=== PATIENT | female | born 1955 | race Caucasian/White ===

== ENCOUNTER 2024-01-01 09:07 | Emergency (ER) | payer MEDICARE, SELFPAY ==
[2024-01-01 09:20] VITALS: BP 144/82
--- NOTE | 2024-01-01 12:12 | ED.GENMED ---
History of Present Illness
General
Chief Complaint: Allergic Reaction
Source: patient
Exam Limitations: none
Time Seen by Provider: 01/01/24 10:05
Travel History
Have you had any contact with someone who has COVID-19?: No
Do you have any symptoms of coronavirus? Fever > 100 degrees, chills, cough, shortness of breath, sore throat, loss of taste or smell, muscle aches, or headache?: No
History of Present Illness
History of Present Illness:
68-year-old female presents after developing an itchy rash diffusely over her body after taking any medication today. The tablet of vitamin B3 as well as a tablet and vitamin B6 and 3 minutes afterwards, he developed a red itchy rash diffusely.
Called ambulance. There is no respiratory distress. There is no vomiting. She was given Decadron Benadryl and an EpiPen en route. Upon my exam she states the rash is almost nearly resolved. She denies any chest pain
Phy Exam
Physical Exam
Physical Exam:
General: Well-appearing female no acute respiratory distress
HEENT: Normocephalic atraumatic neck is supple
Heart: Regular rate and rhythm no murmurs
Skin: Warm evidence of a prior rash exist but seems to be fading
Extremities: No cyanosis
Course
Vital Signs
Initial and Last Documented VS:
Initial Vital Signs
Temp Pulse Resp BP Pulse Ox
98.2 F 78 18 144/82 97
01/01/24 09:20 01/01/24 09:20 01/01/24 09:20 01/01/24 09:20 01/01/24 09:20
Last Documented Vital Signs
Temp Pulse Resp BP Pulse Ox
98.2 F 78 18 144/82 97
01/01/24 09:20 01/01/24 09:20 01/01/24 09:20 01/01/24 09:20 01/01/24 09:20
MDM/Problems Addressed
Differential Diagnosis Includes:
Allergic reaction. Patient was given epinephrine. No current rash. Will observe
*Critical Care Note
Total Time (30-74mins, 75-104mins- exclusive of procedures): Not Applicable
Update Note
Update Note:
Patient was observed for period time feeling much better. Will prescribe epinephrine pen for use at home if need be. Recommended follow-up with family doctor
ED Attending Note
-
Portions of this chart may have been created with voice recognition software.� Occasional wrong word or��sound alike� substitutions may have occurred due to the inherent limitations of voice recognition software.
Discharge Plan
Departure
Patient Disposition: Home (Routine Discharge)
Date of Disposition: 01/01/24
Time of Disposition: 12:15
Patient with high blood pressure during this ER visit?: No
Discharge Problem:
Allergic reaction
Instructions: Adverse Drug Reactions, Adult (DC)
Prescriptions:
New
epinephrine [EpiPen] 0.3 mg/0.3 mL auto-injector
0.3 mg IM .STAT PRN (Reason: anaphylaxis) Qty: 1 0RF
Referrals:
Jamaica Batista DO [Family Provider] -
Activity Restrictions/Additional Instructions:
Avoid the pills you reacted to this morning. Follow-up with family doctor. Use EpiPen if needed for severe allergic reaction.
Interventions
Interventions:
ED- Cardiac Assessment Last Done: 01/01/24 11:26
ED- Pulmonary Assessment Last Done: 01/01/24 11:27
== END 2024-01-01 12:50 | disposition home or self-care (01) ==
LOC: EMR 09:07
PROVIDERS: EMERGENCY PHYSICIAN Emergency Medicine; FAMILY PHYSICIAN Family Medicine
DX: T78.40XA Allergy, unspecified, initial encounter (principal); X58.XXXA Exposure to other specified factors, initial encounter
CPT/HCPCS: 99282

== ENCOUNTER 2024-07-07 07:19 | Inpatient (IN) | payer MEDICARE, SELFPAY ==
[2024-07-05 13:21] VITALS: BP 165/110
[2024-07-05 13:42] LABS: % Basophils 0.2 % (0-2); % Eosinophils 0.5 % (0-6); % Immature Granulocytes 0.2 % (0-0.5); % Lymphocytes 36.5 % (20.5-51.1); % Monocytes 7.2 % (1.7-9.3); % Neutrophils 55.4 % (42.2-75.2); Absolute Lymphocytes 1.5 10^3/uL (1.2-3.4); Absolute Monocytes 0.3 10^3/uL (0.1-0.6); Absolute Neutrophils 2.3 10^3/uL (1.4-6.5); Hematocrit 38.1 % (37.0-47.0); Hemoglobin 13.3 g/dL (12.0-16.0); Mean Corp Hgb Conc. 34.9 g/dL (33.0-37.0); Mean Corpuscular Hgb 31.1 pg (27.0-31.0); Mean Corpuscular Volume 89.2 fL (81.0-99.0); Mean Platelet Volume 9.1 fL (7.4-10.4); Nucleated Red Blood Cells % 0 %; Platelet Count 330 10^3/uL (130-400); Red Blood Cell Count 4.27 10^6/uL (4.20-5.40); Red Cell Dist. Width 12.8 % (11.5-14.5); White Blood Cell Count 4.1 10^3/uL (4.8-10.8)
[2024-07-05 13:54] LABS: INR 1.01; PT 13.3 Sec (11.4-14.6)
[2024-07-05 14:03] LABS: ALT (SGPT) < 10 U/L (0-35); AST (SGOT) 24 U/L (14-36); Albumin 4.5 g/dl (3.5-5.0); Alkaline Phosphatase 79 U/L (38-126); Blood Urea Nitrogen 10 mg/dl (7-17); Calcium 10.1 mg/dl (8.4-10.2); Carbon Dioxide 25 mmol/L (22-30); Chloride 102 mmol/L (98-107); Glucose 122 mg/dl (70-99); Potassium 4.1 mmol/L (3.5-5.1); Sodium 134 mmol/L (135-145); Total Bilirubin 0.8 mg/dl (0.2-1.3); eGFR > 60.00
[2024-07-05 14:06] LABS: Troponin I < 0.012 ng/ml
[2024-07-05] MEDS: ULTRAM 50 MG PO ×2 (15:15→20:09)
[2024-07-05 15:45] VITALS: BP 131/84
--- NOTE | 2024-07-05 16:45 | ED.GENMED ---
History of Present Illness
General
Chief Complaint: Weakness
Source: patient and records
Exam Limitations: none
Time Seen by Provider: 07/05/24 14:42
Nursing documentation reviewed up to this point in time: agreed with
History of Present Illness
History of Present Illness:
Patient is a 69-year-old female presents to the emergency department complaining of neck pain. Patient's had surgery x 2. Patient states she twisted her neck neck became stiff. Patient feels swelling in the back of her head. Patient is weakness
in arms and legs with numbness and paresthesias in her upper extremities bilaterally patient has pain radiating from her neck into her upper extremities. Patient particularly has pain in her right collarbone area. Patient also has cracking in her
neck whenever she moves it which is new. Patient had been on tramadol but was switched by her pain doctor to oxycodone. Patient has an appointment for tomorrow with her pain specialist. Patient canceled the appointment. Patient is out of pain
medication. Patient denies fever but admits to chills. Patient denies incontinence. Patient denies any recent injuries or illnesses. Patient denies weight change.
Past History
Past History
ED Past Medical History: HTN and Other (Chronic pain, Parkinson's, Crohn's disease)
Social History
Tobacco: Non-smoker
Review of Systems
Review of Systems
All Other Systems: ROS reviewed and negative except as documented in HPI and ROS
Constitutional: Reports fatigue; Denies fever or chills
EENT: Reports no symptoms
Respiratory: Reports no symptoms
Cardiac: Reports no symptoms
ABD/GI: Reports no symptoms
: Reports no symptoms; Denies incontinence
Musculoskeletal: Reports neck pain
Neurological: Reports weakness and numbness
Hematologic/Lymphatic: Reports no symptoms
Phy Exam
Physical Exam
Physical Exam:
Physical Exam
General: moderate distress, alert and appropriate, well nourished, well hydrated
HENT: Normocephalic and nontender, supple with no lymphadenopathy, no thyromegaly. Decreased range of motion in all planes with diffuse tenderness the posterior neck
Eyes: Clear sclera, conjuctiva without injection
Heart: Regular rhythm and rate. No S3, S4. No murmur. No NVD
Lungs: No respiratory distress, no stridor, lung sounds clear and equal bilaterally
Abdomen: Soft, nontender, BS good
Neuro: Alert and oriented x 3, CN II - XII intact, no motor focality but diffuse weakness, no cerebellar dysfunction
Skin: no rash
Psychiatric: well kept. interactive and cooperative
Extremities: No edema, cyanosis, tenderness, Good and equal peripheral pulses.
Course
Orders/Labs/Results
Orders:
Orders
07/05/24 13:22
EKG [Electrocardiogram (*1)] Urgent
Reason for Study: Fatigue / Weakness
EKG- Treatment ONCE
07/05/24 13:30
Complete Blood Count/With Diff Urgent
Comprehensive Metabolic Panel Urgent
Prothrombin Time Urgent
Troponin I Urgent
07/05/24 15:00
Tramadol HCl [Ultram] 50 mg PO NOW STA
07/05/24 17:35
CT Cervical Spine W/o Iv Contr Urgent
Comment:
Reason For Exam: diffuse pain with tingling in fingers b/l
07/05/24 19:31
Tramadol HCl [Ultram] 50 mg PO NOW STA
07/05/24 19:37
Dexamethasone Sod Phosphate [Decadron] 10 mg IV NOW STA
Abnormal Lab Results
07/05/24
13:30
WBC 4.1 L 10^3/uL
(4.8-10.8)
MCH 31.1 H pg
(27.0-31.0)
Sodium 134 L mmol/L
(135-145)
Creatinine 0.4 L mg/dL
(0.6-1.0)
Glucose 122 H mg/dl
(70-99)
07/05/24 13:30
07/05/24 13:30
Vital Signs
Initial and Last Documented VS:
Initial Vital Signs
Temp Pulse Resp BP Pulse Ox
99.0 F 81 18 165/110 94
07/05/24 13:21 07/05/24 13:21 07/05/24 13:21 07/05/24 13:21 07/05/24 13:21
Last Documented Vital Signs
Temp Pulse Resp BP Pulse Ox
99.0 F 79 16 133/70 98
07/05/24 13:21 07/05/24 19:00 07/05/24 19:00 07/05/24 19:02 07/05/24 19:00
*Radiology
Radiology exam reviewed: radiology read reviewed (Postsurgical changes seen with mild to moderate narrowing of the foramens but nothing acute)
*Pulse Oximetry
Patient hypoxic: no
*EKG
Interpreted by ED Provider?: Yes
EKG Intrepretation Date: 07/05/24
EKG Intrepretation Time: 19:51
Interpretation: normal
Comparison EKG: no comparison EKG present
Heart Rate: 105
Rate: tachycardiac
Rhythm: sinus
[place]: normal axis
Interval: normal interval
QRS Pattern: normal QRS
Ischemia: no ischemia
*Donkey Engine Firer/Fireman Interpretation
Rate: Donkey Engine Firer/Fireman- N/A
*Critical Care Note
Total Time (30-74mins, 75-104mins- exclusive of procedures): Not Applicable
Update Note
Update Note:
Patient states she is too weak generally to walk or ambulate and is in too much pain to be able go home. Patient canceled her appointment with her pain doctor because she was here. I do not see evidence of a cord compression. Patient may have
generalized inflammation. Patient is mildly tachycardic. Given the fact that the patient is essentially nonambulatory will admit the patient.
ED Attending Note
-
Portions of this chart may have been created with voice recognition software.� Occasional wrong word or��sound alike� substitutions may have occurred due to the inherent limitations of voice recognition software.
Discharge Plan
Departure
Patient Disposition: Admit
Date of Disposition: 07/05/24
Time of Disposition: 19:53
Admit to: Med/Surg
Admit to doctor: Hospitalist
Presentation/result/management discussed w/ accepting MD/DO: Hospitalist
Patient with high blood pressure during this ER visit?: Yes
Condition: Fair
Covid-19: Not Applicable
Discharge Problem:
Neck pain, Radiculopathy of cervical region, Ambulatory dysfunction
Prescriptions:
No Action
epinephrine [EpiPen] 0.3 mg/0.3 mL auto-injector
0.3 mg IM .STAT PRN (Reason: anaphylaxis) Qty: 1 0RF
Referrals:
Jamaica Batista DO [Family Provider] -
Interventions
Interventions:
*Risk Screen - Suicide Last Done: 07/05/24 19:00
*General Assessment Last Done: 07/05/24 19:00
*Neglect/Abuse Screening Last Done: 07/05/24 19:00
*ED COVID-19 Vaccine History Last Done: 07/05/24 19:00
ED- Cardiac Assessment Last Done: 07/05/24 19:00
ED- Neurological Assessment Last Done: 07/05/24 19:00
ED- Pulmonary Assessment Last Done: 07/05/24 19:00
Discharge Date and Time
Print Language: ROMANIAN
[2024-07-05 19:02] VITALS: BP 133/70
[2024-07-05] MEDS: DECADRON 10 MG IV (20:09)
--- NOTE | 2024-07-05 20:32 | HPS.HSE ---
Addendum entered and electronically signed by Eric Vega MD 07/05/24 23:45:
Med rec has since been completed. Continue carbidopa-levodopa for Parkinson's disease. Continue lisinopril for hypertension. Continue Lexapro for depression.
Original Note:
Family Physician
-
Family Physician: Jamaica Batista,
Chief Complaint
-
neck pain
History of Present Illness
69-year-old female past medical history of chronic neck pain, cervical disc disease, lumbar spinal stenosis, Parkinson's disease, Crohn's disease status post bowel resection now cured, presenting with neck pain over the past month.
Patient has a history of chronic pain due to cervical disc herniation/stenosis. She underwent several surgeries once in 2020 and 2022 including cervical fusion with screws/intervertebral disc spacer/laminectomy. She normally takes tramadol for
pain and pain is usually well-controlled. He sees pain management. She uses a neck collar while driving. A month ago she was driving and afterwards she tried to take her neck collar off and hurt her neck. This again happened more recently within
the past few weeks. She also ran out of her tramadol.
Over the past week in addition to the severe pain in her neck which radiates to the occipital region of her head, she has also developed pain in her neck that radiates down her arms associate with numbness and tingling and weakness of the upper
extremities. She has also had weakness of the lower extremities and occasional numbness and tingling down the right leg. She is able to walk to the bathroom but feels more weak than usual. She denies any urinary or stool incontinence. She has
occasional chills but denies any fever.
Her last MRI was 1 year ago.
She uses marijuana sometimes. She denies smoking or alcohol use.
Medical History
Past Medical History
Past Medical History: Reports Other (chronic neck pain, cervical disc disease, lumbar spinal stenosis, Parkinson's disease, Crohn's disease status post bowel resection now cured,)
Past Surgical History: Reports Bowel Resection and Gynocological
Social History
Tobacco: Non-smoker
Alcohol: None
Drug: Marijuana
Family History
Family History: Not pertinent
Allergies / Home Medications
Allergies reflects when Allergies were last updated in [facility].
Home Medications with original date entered in [facility]
Allergy/Medication List:
Allergies
Allergy/AdvReac Type Severity Reaction Status Date / Time
gabapentin Allergy Rash Verified 07/05/24 13:20
Penicillins Allergy Unknown Verified 07/05/24 13:20
Home Medications
epinephrine 0.3 mg/0.3 mL injection, auto-injector (EpiPen) 0.3 mg (0.3 mL) IM .STAT PRN anaphylaxis #1 ea 01/01/24
Review of Systems
-
History Source: Patient
A 12 point ROS was completed and negative except as noted: Yes
Constitutional: Reports No Symptoms
EENT: Reports No Symptoms
Respiratory: Reports No Symptoms
Cardiac: Reports No Symptoms
Abdomen/GI: Reports No Symptoms
: Reports No Symptoms
Musculoskeletal: Reports See HPI
Skin: Reports No Symptoms
Neurological: Reports No Symptoms
Endocrine: Reports No Symptoms
Hematologic/Lymphatic: Reports No Symptoms
Psych: Reports No Symptoms
Physical Exam
Vital Signs
Vital Signs
Temp Pulse Resp BP Pulse Ox
99.0 F 79 16 133/70 98
07/05/24 13:21 07/05/24 19:00 07/05/24 19:00 07/05/24 19:02 07/05/24 19:00
Physical Exam
General: Well Developed, Well Nourished and No Apparent Distress
HEENT: NormoCephalic, Moist mucous membranes and Atraumatic
Respiratory: Clear
Cardiac: S1/S2 and Regular Rhythm; No Murmur or Rub
GI: Soft, Non Tender, Non Distended and Normal Bowel Sounds; No Organomegaly
Rectal: Deferred by Provider
Musculoskeletal: No Clubbing, No Cyanosis, No Edema and Other (4/5 upper extremity strength and lower extremity strength )
Skin: No Rash
Neuro: Nonfocal/grossly intact
Laboratory Results
-
07/05/24 13:30
07/05/24 13:30
Laboratory Results
PT 13.3 Sec (11.4-14.6) 07/05/24 13:30
INR 1.01 07/05/24 13:30
Total Bilirubin 0.8 mg/dl (0.2-1.3) 07/05/24 13:30
AST 24 U/L (14-36) 07/05/24 13:30
ALT < 10 U/L (0-35) 07/05/24 13:30
Alkaline Phosphatase 79 U/L (38-126) 07/05/24 13:30
Troponin I < 0.012 ng/ml 07/05/24 13:30
Data Reviewed
-
Lab Data: Labs Reviewed by me
Old Records: Reviewed
Impression/Plan
-
IMPRESSION:
PLAN:
# Bilateral upper extremity radiculopathy secondary to cervical spinal disc disease status post cervical fusion with metal screws/metallic intervertebral disc spacers/laminectomy
# History of lumbar spinal stenosis
# Chronic pain from above
-CT cervical spine shows postsurgical changes after anterior cervical fusion from C4-C7, vertebral screws from C4-C7, metallic intervertebral disc spacers from C4-C7
-Given dexamethasone in ER
-Tylenol, continue tramadol, ibuprofen, baclofen, Dilaudid for severe pain
-Check MRI cervical, thoracic and lumbar spine given mild upper extremity weakness on examination
-PT/OT
Multiple sclerosis
Crohn's disease status post bowel resection and cured
Occasional marijuana use
DNR/DNI
DVT prophylaxis heparin
Regular diet
[2024-07-05 21:05] VITALS: BP 126/81; BMI 24.7
--- NOTE | 2024-07-05 21:34 | PTCARENOTE ---
Patient arrived from the ED via stretcher. Patient ambulated into the room with assistance. Patient AAOx3, VSS. Patient wearing own C-Collar and left ankle brace. RN and staff advised patient to ring call arellano whenever she needs to get up to use the
bathroom, etc. Bedside commode by the bedside. Call arellano is within reach.
[2024-07-05] MEDS: LIORESAL 5 MG PO (22:55)
[2024-07-05 23:25] VITALS: BP 118/77
[2024-07-06] MEDS: DILAUDID 0.5 MG IV (00:59)
[2024-07-06] MEDS: TYLENOL 1000 MG PO ×2 (02:33→10:06)
[2024-07-06 03:03] VITALS: BP 110/71
[2024-07-06] MEDS: ULTRAM 50 MG PO ×3 (06:16→20:45)
[2024-07-06 07:52] VITALS: BP 145/87
[2024-07-06 08:13] LABS: % Immature Granulocytes 0.4 % (0-0.5); % Monocytes 4.3 % (1.7-9.3); % Neutrophils 69.3 % (42.2-75.2); Absolute Lymphocytes 1.3 10^3/uL (1.2-3.4); Absolute Monocytes 0.2 10^3/uL (0.1-0.6); Absolute Neutrophils 3.4 10^3/uL (1.4-6.5); Hematocrit 39.3 % (37.0-47.0); Hemoglobin 13.3 g/dL (12.0-16.0); Mean Corp Hgb Conc. 33.8 g/dL (33.0-37.0); Mean Corpuscular Hgb 31.4 pg (27.0-31.0); Mean Corpuscular Volume 92.7 fL (81.0-99.0); Mean Platelet Volume 10.1 fL (7.4-10.4); Nucleated Red Blood Cells % 0 %; Platelet Count 326 10^3/uL (130-400); Red Blood Cell Count 4.24 10^6/uL (4.20-5.40); Red Cell Dist. Width 12.6 % (11.5-14.5); White Blood Cell Count 4.9 10^3/uL (4.8-10.8)
[2024-07-06] MEDS: HEPARIN 5000 UNITS SC ×2 (08:38→19:24)
[2024-07-06] MEDS: ZESTRIL 20 MG PO (08:39)
[2024-07-06] MEDS: OSCAL CAL 500 500 MG PO (08:39)
[2024-07-06] MEDS: LEXAPRO 10 MG PO (08:39)
[2024-07-06] MEDS: VITAMIN D3 (cholecalciferol) 25 MCG PO (08:40)
[2024-07-06] MEDS: THERAGRAN 1 TABLET PO (08:41)
[2024-07-06 08:42] LABS: ALT (SGPT) < 10 U/L (0-35); AST (SGOT) 23 U/L (14-36); Albumin 4.5 g/dl (3.5-5.0); Alkaline Phosphatase 91 U/L (38-126); Blood Urea Nitrogen 13 mg/dl (7-17); Calcium 9.8 mg/dl (8.4-10.2); Carbon Dioxide 24 mmol/L (22-30); Chloride 102 mmol/L (98-107); Estimated Creatinine Clearance 72 ml/min; Glucose 104 mg/dl (70-99); Potassium 4.3 mmol/L (3.5-5.1); Sodium 135 mmol/L (135-145); Total Bilirubin 0.8 mg/dl (0.2-1.3); Total Protein 7.1 g/dl (6.3-8.2); eGFR > 60.00
[2024-07-06] MEDS: LIORESAL 5 MG PO ×2 (08:49→21:47)
[2024-07-06] MEDS: SINEMET 25-250 1 TABLET PO ×3 (10:06→16:29)
[2024-07-06] MEDS: ROXICODONE 5 MG PO (10:44)
--- NOTE | 2024-07-06 11:48 | W.PN.HOSP.TC ---
Today's Communication/Plan
-
Check MRI of the C-spine
Physical and Occupational Therapy
Pain control
Assessment / Plan
Assessment / Plan
General: Well Developed, Well Nourished and No Apparent Distress
HEENT: NormoCephalic, Moist mucous membranes and Atraumatic
Respiratory: Clear
Cardiac: S1/S2 and Regular Rhythm; No Murmur or Rub
GI: Soft, Non Tender, Non Distended and Normal Bowel Sounds; No Organomegaly
Rectal: Deferred by Provider
Musculoskeletal: No Clubbing, No Cyanosis, No Edema and Other (4/5 upper extremity strength and lower extremity strength )
Skin: No Rash
Neuro: Nonfocal/grossly intact
# Bilateral upper extremity radiculopathy secondary to cervical spinal disc disease status post cervical fusion with metal screws/metallic intervertebral disc spacers/laminectomy
# History of lumbar spinal stenosis
# Chronic pain from above
# Chronic opiate dependent on daily basis
-CT cervical spine shows postsurgical changes after anterior cervical fusion from C4-C7, vertebral screws from C4-C7, metallic intervertebral disc spacers from C4-C7
-Given dexamethasone in ER
-Tylenol, continue tramadol, ibuprofen, baclofen, Dilaudid for severe pain
-Check MRI cervical spine for now.
-PT/OT
-States pain is well-controlled with tramadol and follows up with pain management doctor. Recently tramadol was switched to Percocet. Per patient tramadol high dose seems to be helping more with pain compared to Percocet.
# Parkinson disease
Continue home regimen of carbidopa levodopa
#Generalized weakness likely multifactorial due to chronic pain on opioids, Parkinson disease
-Check Vit D, B12, Folate and TSH level
# Primary hypertension
Continue lisinopril
Mood disorder
Continue SSRI
R shoulder pain
Xray-Osteoarthritis involving the glenohumeral and acromioclavicular joints with associated joint space narrowing
Ice pack
pain control
Crohn's disease status post bowel resection and cured
Occasional marijuana use
DNR/DNI
DVT prophylaxis heparin
Regular diet
Anticipated Discharge: Within 24 hours
Subjective/Interval History
-
Date of Service: July 06, 2024
states of neck pain radiating to shoulder
states of R shoulder pain
hx of cervical spinal surgery
sees op pain managmenet
Objective Data
-
Labs:
Laboratory Results
07/06/24
06:17
WBC 4.9
Hgb 13.3
Hct 39.3
Plt Count 326
Sodium 135
Potassium 4.3
Chloride 102
Carbon Dioxide 24
BUN 13
Creatinine 0.4 L
Glucose 104 H
Calcium 9.8
Total Bilirubin 0.8
AST 23
ALT < 10
Alkaline Phosphatase 91
Vital Signs:
Vital Signs
Temp Pulse Resp BP Pulse Ox
98.2 F 114 22 145/87 97
07/06/24 07:52 07/06/24 07:52 07/06/24 07:52 07/06/24 08:39 07/06/24 11:01
I&O
07/05/24 07/06/24 07/07/24
06:59 06:59 06:59
Intake Total 480 / 480
Balance 480 / 480
[2024-07-06 14:16] LABS: Vitamin D, 25-OH*** 38.2 ng/mL (30-80)
[2024-07-06] MEDS: ATIVAN 1 MG PO (14:21)
[2024-07-06 14:27] LABS: TSH Reflex To Free T4 0.49 uIU/ml (0.47-4.68)
[2024-07-06 14:56] VITALS: BMI 24.7
[2024-07-06 15:03] LABS: Folate > 20.0 ng/ml (2.76-20); Vitamin B12 846 pg/ml (239-931)
[2024-07-06 15:52] VITALS: BP 145/87
[2024-07-06] MEDS: SINEMET 25-250 PO (19:23)
[2024-07-06] MEDS: SINEMET CR 50/200 (EXTENDED RELEASE) 1 TABLET PO (21:41)
[2024-07-06] MEDS: MELATONIN 10 MG PO (21:41)
[2024-07-06 23:00] VITALS: BP 114/67
[2024-07-07] MEDS: TYLENOL 650 MG PO (03:49)
[2024-07-07] MEDS: SINEMET 10-100 3 TABLET PO (03:50)
[2024-07-07 05:45] VITALS: BMI 25.2
[2024-07-07] MEDS: ULTRAM 50 MG PO (06:33)
[2024-07-07 07:10] VITALS: BP 114/74
--- NOTE | 2024-07-07 09:41 | CM ---
CM met with Nicole at bedside yesterday to complete IA. Nicole lives alone in a duplex, the second floor with 12 entry steps with bilateral railings. She has a RW, cane and tub seat as well as grab bars in the tub. The family downstairs are
supportive.
Therapy was on hold yesterday pending results of MRI.
Nicole would like to return home at discharge if able and would consider VN if recommended.
CM will continue to follow to coordinate discharge plans based on pt's needs.
[2024-07-07] MEDS: VITAMIN D3 (cholecalciferol) 125 MCG PO (09:56)
[2024-07-07] MEDS: TYLENOL 1000 MG PO (09:57)
[2024-07-07] MEDS: OSCAL CAL 500 500 MG PO (09:58)
[2024-07-07] MEDS: THERAGRAN 1 TABLET PO (09:58)
[2024-07-07] MEDS: ZESTRIL 20 MG PO (09:58)
[2024-07-07] MEDS: LEXAPRO 10 MG PO (09:59)
[2024-07-07] MEDS: HEPARIN 5000 UNITS SC (09:59)
[2024-07-07] MEDS: LIORESAL 5 MG PO (10:01)
[2024-07-07] MEDS: SINEMET 25-250 1 TABLET PO ×2 (10:01→13:10)
--- NOTE | 2024-07-07 11:27 | W.PN.HOSP.TC ---
Today's Communication/Plan
-
Await rehab eval
Pain controlled
Assessment / Plan
Assessment / Plan
General: Well Developed, Well Nourished and No Apparent Distress
HEENT: NormoCephalic, Moist mucous membranes and Atraumatic
Respiratory: Clear
Cardiac: S1/S2 and Regular Rhythm; No Murmur or Rub
GI: Soft, Non Tender, Non Distended and Normal Bowel Sounds; No Organomegaly
Rectal: Deferred by Provider
Musculoskeletal: No Clubbing, No Cyanosis, No Edema and Other (4/5 upper extremity strength and lower extremity strength )
Skin: No Rash
Neuro: Nonfocal/grossly intact
# Bilateral upper extremity radiculopathy secondary to cervical spinal disc disease status post cervical fusion with metal screws/metallic intervertebral disc spacers/laminectomy
# History of lumbar spinal stenosis
# Chronic pain from above
# Chronic opiate dependent on daily basis
-CT cervical spine shows postsurgical changes after anterior cervical fusion from C4-C7, vertebral screws from C4-C7, metallic intervertebral disc spacers from C4-C7
-Given dexamethasone in ER
-Tylenol, continue tramadol, ibuprofen, baclofen, Dilaudid for severe pain
-MR cervical spine noted and report given to patient with extensive radiculopathy and changes associated from prior surgeries.
-PT/OT
-States pain is well-controlled with tramadol and follows up with pain management doctor. Recently tramadol was switched to Percocet. Per patient tramadol high dose seems to be helping more with pain compared to Percocet.
-States baclofen also helping with muscle spasms
# Parkinson disease
Continue home regimen of carbidopa levodopa
#Generalized weakness likely multifactorial due to chronic pain on opioids, Parkinson disease
-Vitamin D level low and dose increased.
# Primary hypertension
Continue lisinopril
Mood disorder
Continue SSRI
R shoulder pain
Xray-Osteoarthritis involving the glenohumeral and acromioclavicular joints with associated joint space narrowing
Ice pack
pain control
Crohn's disease status post bowel resection and cured
Occasional marijuana use
DNR/DNI
DVT prophylaxis heparin
Regular diet
PT/OT.
Anticipated Discharge: Today
Subjective/Interval History
-
Date of Service: July 07, 2024
intermittent pain but controlled with opiates
Objective Data
-
Vital Signs:
Vital Signs
Temp Pulse Resp BP Pulse Ox
98.3 F 87 22 114/74 98
07/07/24 07:10 07/07/24 07:10 07/07/24 07:10 07/07/24 07:10 07/07/24 07:10
I&O
07/06/24 07/07/24 07/08/24
06:59 06:59 06:59
Intake Total 480 / 480 480 / 480
Balance 480 / 480 480 / 480
Data Reviewed
-
MRI: Discussed with Patient (No intrinsic cervical cord signal alteration. Post surgical changes, as described. Slightly accentuated subtle kyphosis at C3-4 combines with moderate generalized annular bulge, resulting in effacement of the anterior
subarachnoid space and mild cord compression. There is also C3-4 mild to moderat)
--- NOTE | 2024-07-07 12:18 | CM ---
Addendum entered by Bibi Granados 07/07/24 16:59:
CM returned to visit Nicole since she was trying to stay longer in the hospital. I advised her that if she did not want to leave, she would have to call Medicare; copy of the IMM provided and explained.
Nicole did not wish to appeal discharge, and stated she would probably be fine to go home after she eats dinner.
RN and MD notified of same.
Plan: Discharge to home with no identified needs. Pt will arrange a LYFT.
Addendum entered by Bibi Granados 07/07/24 14:26:
Nicole is cleared for discharge to home. She was seen this afternoon by PT and was ambulating without any assistance. Now she is stating she feels dizzy and has nothing in her stomach. Discussed with RN and gave Nicolese beatty sal.
We talked about home care services which she had previously been agreeable to, if needed, however now she says she had therapists come to her home and knows the exercises that she should do.
Plan: Nicole to be discharged to home. She will take a Lyft home; she states her neighbors are now going on vacation.
Original Note:
AIMEE continues to follow for discharge planning. Nicole has not had much sleep, so she refused to participate in PT today; She did work with OT and was able to do so independently today.
Plan: Discharge to home with no needs vs. home care services pending PT participation
Neighbors will provide transportation at discharge.
PCP: Nory Batista
Pharmacy: [facility] on [facility] in [place]
[2024-07-07] MEDS: PINK BISMUTH 525 MG PO (13:07)
[2024-07-07] MEDS: ULTRAM 100 MG PO (13:10)
[2024-07-07 13:42] VITALS: BP 97/62; PULSE 81; O2SAT 95
--- NOTE | 2024-07-07 15:36 | W.DCSUMMARY ---
Discharge Summary
Discharge Data
Date of Admission: 07/07/24
Date of Discharge: 07/07/24
-
Pending Results: No
Hospital Course
69-year-old female past medical history of Parkinson disease, hypertension, mood disorder, chronic osteoarthritis, status post resection, occasional male usage, cervical osteoarthritis status post laminectomy extensive surgery who is presenting with
cervical pain and right shoulder pain. Patient underwent CT of the cervical spine CT cervical spine shows postsurgical changes after anterior cervical fusion from C4-C7, vertebral screws from C4-C7, metallic intervertebral disc spacers from C4-C7.
MR cervical spine No intrinsic cervical cord signal alteration. Slightly accentuated subtle kyphosis at C3-4 combines with moderate generalized annular bulge, resulting in effacement of the anterior subarachnoid space and mild cord compression.
There is also C3-4 mild to moderate right foraminal stenosis. Otherwise, no focal protrusion or central canal stenosis at C2-3, C4-5, C5-6, C6-7, C7-T1. There is multilevel moderate osseous neural foraminal encroachment bilaterally extending from
C4-5-6 7. Patient was eval by physical and Occupational Therapy. Patient refused outpatient therapy. Received IV steroids without much improvement and status prednisone in the past did not help. Also was complaining of lower extremity muscle
spasms and stated baclofen seem to help. Patient stated of pain alleviation with increased dose of tramadol and did not want Percocet/oxycodone. Tramadol increased dose was prescribed to the patient and was recommended to follow-up with her
primary pain management doctor next week. Also spine orthopedic evaluation was recommended.
Discharge Plan
-
Patient Disposition: Home with Home Care
Discharge Diagnosis/Procedures: Cervical radiculopathy
Condition: Fair
Diet: As tolerated
Activity: With assistance and As tolerated
Driving Restrictions: Avoid driving while taking narcotics.
Other Services: VN, PT and OT
Activity Restrictions/Additional Instructions:
Follow-up with your pain management doctor as soon as possible.
Referrals:
Michael Donaldson, DO [Active] - in one to two weeks
Jamaica Batista, DO [Family Provider] - in less than 1 week
Additional Discharge Medication Instructions: Percocet has been discontinued till seen by your pain management.
Prescriptions:
New
baclofen 5 mg Tablet
5 mg PO BID PRN (Reason: muscle spasm) 14 Days Qty: 28 0RF
tramadol 100 mg tablet
100 mg PO BID PRN (Reason: severe pain) Qty: 14 0RF
Continued
carbidopa-levodopa 25-250 mg Tablet
1 tab PO Q3H
Patient Comments:
07/05/24: Doses start taken 3 hours after the morning dose of 10-100 strength, and end 3 hours before bedtime dosages.
carbidopa-levodopa 50-200 mg Tablet Extended Release
1 tab PO HS
Patient Comments:
07/05/24: take with 2 10-100 tablets.
therapeutic multivitamin Tablet
1 tab PO DAILY
acetaminophen [Tylenol Extra Strength] 500 mg Tablet
1,000 mg PO Q6HPRN PRN (Reason: mild pain)
calcium carbonate 500 mg calcium (1,250 mg) Tablet
500 mg PO DAILY
carbidopa-levodopa 10-100 mg Tablet
3 tab PO DAILY
carbidopa-levodopa 10-100 mg Tablet
2 tab PO HS
Patient Comments:
07/05/24: taken with ER 50-200 tablet
carboxymethylcellulose sodium 1 % Drops, Liquid Gel
2 drp BOTH EYES BIDPRN PRN (Reason: dry eyes)
escitalopram oxalate 10 mg Tablet
10 mg PO DAILY
Saline Mist 0.65 % Aerosol,[place]
2 spray INTRANASAL QIDPRN PRN (Reason: conjestion)
melatonin 10 mg Tablet
10 mg PO HS
[place] Xl capsule
2 cap PO BID
lisinopril 20 mg Tablet
20 mg PO DAILY
Changed
cholecalciferol (vitamin D3) [Vitamin D3] 25 mcg (1,000 unit) Tablet
50 mcg PO DAILY Qty: 0 0RF
Discontinued
tramadol 50 mg Tablet
50 mg PO BIDPRN PRN (Reason: moderate pain)
Discharge Orders:
Discharge Patient (As Directed); Ordered 07/07/24
Ordered By: Mauricio Busch
Discharge Date and Time
Discharge Date/Time: 07/07/24 17:59
Print Language: TANZANIAN
[2024-07-07 15:49] VITALS: BP 110/63
== END 2024-07-07 17:59 | disposition home health service (06) | DRG 552 ==
LOC: 4 EAST ACU 07:19
PROVIDERS: ADMITTING PHYSICIAN Hospitalist; ATTENDING PHYSICIAN Hospitalist; EMERGENCY PHYSICIAN Emergency Medicine; FAMILY PHYSICIAN Family Medicine
DX: M50.11 Cervical disc disorder with radiculopathy, high cervical region (principal); F11.20 Opioid dependence, uncomplicated; M48.02 Spinal stenosis, cervical region; I10 Essential (primary) hypertension; Z66 Do not resuscitate; F39 Unspecified mood [affective] disorder; G89.29 Other chronic pain; G35 Multiple sclerosis; G20.A1 Parkinson's disease without dyskinesia, without mention of fluctuations; R53.1 Weakness; Z98.1 Arthrodesis status
CPT/HCPCS: 72125; 72141; 73030; 80053; 82306; 82607; 82746; 84443; 84484; 85025; 85610; 93005; 96374; 97162; 97166; 99285

== ENCOUNTER 2025-01-08 13:11 | Inpatient (IN) | payer MEDICARE, SELFPAY ==
[2025-01-04] VITALS (7 sets, daily range): BP systolic 119–146; BP diastolic 68–106
[2025-01-04 17:34] LABS: ALT (SGPT) < 10 U/L (0-35); AST (SGOT) 25 U/L (14-36); Alkaline Phosphatase 104 U/L (38-126); Blood Urea Nitrogen 15 mg/dl (7-17); Calcium 9.7 mg/dl (8.4-10.2); Carbon Dioxide 21 mmol/L (22-30); Chloride 99 mmol/L (98-107); Glucose 109 mg/dl (70-99); Sodium 131 mmol/L (135-145); Total Bilirubin 0.8 mg/dl (0.2-1.3); Total Protein 7.1 g/dl (6.3-8.2); eGFR > 60.00
[2025-01-04 17:47] LABS: % Basophils 0.5 % (0-2); % Eosinophils 0.3 % (0-6); % Immature Granulocytes 0.5 % (0-0.5); % Monocytes 8.4 % (1.7-9.3); % Neutrophils 45.3 % (42.2-75.2); Absolute Lymphocytes 2.9 10^3/uL (1.2-3.4); Absolute Monocytes 0.5 10^3/uL (0.1-0.6); Absolute Neutrophils 2.9 10^3/uL (1.4-6.5); Hematocrit 36.4 % (37.0-47.0); Hemoglobin 12.2 g/dL (12.0-16.0); Mean Corp Hgb Conc. 33.5 g/dL (33.0-37.0); Mean Corpuscular Hgb 30.7 pg (27.0-31.0); Mean Corpuscular Volume 91.7 fL (81.0-99.0); Mean Platelet Volume 8.6 fL (7.4-10.4); Nucleated Red Blood Cells % 0 %; Platelet Count 630 10^3/uL (130-400); Red Blood Cell Count 3.97 10^6/uL (4.20-5.40); Red Cell Dist. Width 13.1 % (11.5-14.5); White Blood Cell Count 6.5 10^3/uL (4.8-10.8)
[2025-01-04 17:52] LABS: Troponin I < 0.012 ng/ml
--- NOTE | 2025-01-04 18:29 | ED.GENMED ---
History of Present Illness
General
Chief Complaint: Headache
Source: patient
Exam Limitations: none
Time Seen by Provider: 01/04/25 18:19
Nursing documentation reviewed up to this point in time: agreed with
History of Present Illness
History of Present Illness:
69-year-old female Parkinson's chronic pain syndrome herniated disc status post pain management procedure recently tells me it wore off about 2 days ago, completed by Dr. Purcell in [address] [place] [address], she has had pain in her neck and her shoulders, some
headaches, tells me she has not run out of her pain meds though PDMP shows that it was last filled 28 days ago
She tells me the tramadol does not work very well anymore
Past History
Past History
ED Past Medical History: HTN and Other (Chronic pain, Parkinson's, Crohn's disease)
Social History
Tobacco: Non-smoker
Alcohol: None
Drug: None
Living: with family
Employment: Retired
Review of Systems
Review of Systems
All Other Systems: Not applicable
Constitutional: Denies fever
EENT: Reports no symptoms
Respiratory: Reports no symptoms
Cardiac: Reports no symptoms
ABD/GI: Reports nausea
: Reports no symptoms
Musculoskeletal: Reports joint pain, joint swelling and muscle stiffness
Neurological: Reports dizzy, headache and weakness
Endocrine: Reports no symptoms
Hematologic/Lymphatic: Reports no symptoms
Psychiatric: Reports anxiety
Phy Exam
Physical Exam
Physical Exam:
Physical Exam
General: Anxious 69-year-old
Neck: No jaundice
Heart: Tachycardic
Lungs: no acute respiratory distress. clear bilaterally
Abdomen: Nontender
Neuro: alert and oriented. no focal neurological deficits
Skin: no rash
Psychiatric: well kept. interactive and cooperative
Extremities: Full range of motion of her shoulders bilaterally without any pain or crepitance
Course
Orders/Labs/Results
Orders:
Orders
01/04/25 16:51
ECG [Electrocardiogram (*1)] Urgent
Reason for Study: Vertigo / Dizzy
EKG- Treatment ONCE
01/04/25 16:57
Complete Blood Count/With Diff Urgent
Comprehensive Metabolic Panel Urgent
Troponin I Urgent
01/04/25 18:41
Oxycodone/Acetaminophen [Percocet 5/325] 1 tablet PO NOW STA
Abnormal Lab Results
01/04/25
16:57
RBC 3.97 L 10^6/uL
(4.20-5.40)
Hct 36.4 L %
(37.0-47.0)
Plt Count 630 H 10^3/uL
(130-400)
Sodium 131 L mmol/L
(135-145)
Carbon Dioxide 21 L mmol/L
(22-30)
Creatinine 0.5 L mg/dL
(0.6-1.0)
Glucose 109 H mg/dl
(70-99)
01/04/25 16:57
01/04/25 16:57
Vital Signs
Initial and Last Documented VS:
Initial Vital Signs
Temp Pulse Resp BP Pulse Ox
97.4 F 133 20 141/88 98
01/04/25 16:47 01/04/25 16:47 01/04/25 16:47 01/04/25 16:47 01/04/25 16:47
Last Documented Vital Signs
Temp Pulse Resp BP Pulse Ox
97.4 F 113 16 138/97 97
01/04/25 16:47 01/04/25 18:45 01/04/25 18:45 01/04/25 18:10 01/04/25 18:45
MDM/Problems Addressed
Differential Diagnosis Includes:
Narcotic withdrawal chronic pain syndrome, no signs of discitis or epidural abscess
MDM/Problems Addressed:
Neck back shoulder pain
Chronic conditions affecting care:
Chronic pain, Parkinson's
Acute Exacerbation and/or Progression of Chronic Illness: Neurological disorder
*Pulse Oximetry
Patient hypoxic: no
*Airways Operations Specialist Interpretation
Rate: tachycardiac
Interpretation: abnormal
Heart Rate: 118
Rhythm: sinus
*Critical Care Note
Total Time (30-74mins, 75-104mins- exclusive of procedures): Not Applicable
Data Reviewed
Review of Other/Old Records Reveals: Other (pdmp)
Prescriptions/Medications Considered But Not Given:
Narcotics
Update Note
Update Note:
Update patient with multiple vague complaints, do not believe this is intracerebral hemorrhage or epidural abscess, she has a chronic pain syndrome, suspect she has run out of her pain meds, will provide supportive care, 1 dose Percocet, I have
encouraged her to call her pain management and primary care doctor tomorrow
Patient ambulated in the ER without difficulty, she has full range of motion of her shoulders without painNo fever no leukocytosis
ED Attending Note
-
Portions of this chart may have been created with voice recognition software.� Occasional wrong word or��sound alike� substitutions may have occurred due to the inherent limitations of voice recognition software.
Discharge Plan
Departure
Patient Disposition: Home (Routine Discharge)
Date of Disposition: 01/04/25
Time of Disposition: 18:50
Patient with high blood pressure during this ER visit?: No
Discharge Problem:
Neck pain, Radiculopathy of cervical region
Prescriptions:
No Action
carbidopa-levodopa 25-250 mg Tablet
1 tab PO Q3H
Patient Comments:
07/05/24: Doses start taken 3 hours after the morning dose of 10-100 strength, and end 3 hours before bedtime dosages.
carbidopa-levodopa 50-200 mg Tablet Extended Release
1 tab PO HS
Patient Comments:
07/05/24: take with 2 10-100 tablets.
therapeutic multivitamin Tablet
1 tab PO DAILY
acetaminophen [Tylenol Extra Strength] 500 mg Tablet
1,000 mg PO Q6HPRN PRN (Reason: mild pain)
calcium carbonate 500 mg calcium (1,250 mg) Tablet
500 mg PO DAILY
carbidopa-levodopa 10-100 mg Tablet
3 tab PO DAILY
carbidopa-levodopa 10-100 mg Tablet
2 tab PO HS
Patient Comments:
07/05/24: taken with ER 50-200 tablet
carboxymethylcellulose sodium 1 % Drops, Liquid Gel
2 drp BOTH EYES BIDPRN PRN (Reason: dry eyes)
escitalopram oxalate 10 mg Tablet
10 mg PO DAILY
Saline Mist 0.65 % Aerosol,[place]
2 spray INTRANASAL QIDPRN PRN (Reason: conjestion)
melatonin 10 mg Tablet
10 mg PO HS
[place] Xl capsule
2 cap PO BID
lisinopril 20 mg Tablet
20 mg PO DAILY
baclofen 5 mg Tablet
5 mg PO BID PRN (Reason: muscle spasm) 14 Days Qty: 28 0RF
cholecalciferol (vitamin D3) [Vitamin D3] 25 mcg (1,000 unit) Tablet
50 mcg PO DAILY Qty: 0 0RF
tramadol 100 mg tablet
100 mg PO BID PRN (Reason: severe pain) Qty: 14 0RF
Referrals:
Silvio Antony MD [Family Provider] - Next open appointment
Activity Restrictions/Additional Instructions:
Call your pain management doctor tomorrow to discuss your symptoms
Interventions
Interventions:
*Risk Screen - Suicide Last Done: 01/04/25 16:51
*General Assessment Last Done: 01/04/25 18:12
*Neglect/Abuse Screening Last Done: 01/04/25 18:12
*ED COVID-19 Vaccine History Last Done: 01/04/25 18:12
ED- Neurological Assessment Last Done: 01/04/25 18:12
Discharge Date and Time
Print Language: JORDANIAN
[2025-01-04] MEDS: PERCOCET 5/325 1 TABLET PO (18:45)
[2025-01-04] MEDS: NSS 1000 IV (19:51)
[2025-01-04] MEDS: ZOFRAN 4 MG IV (19:51)
--- NOTE | 2025-01-04 21:30 | HPS.HSE ---
Family Physician
-
Family Physician: Silvio Antony
Chief Complaint
-
headache
History of Present Illness
Patient is a 6-year-old female with past medical history significant for hypertension, Parkinson's Disease, and depression who presented to [facility] ED for evaluation of headache. Patient reports pain from bulging disc in neck that is in
bilateral shoulders, neck and causing headache. She states the discomfort started yesterday and she used prescribed tramadol and states it was ineffective. She claims that pain was worse this morning than yesterday. Patient denies any fever, chills,
cough, chest pain, palpitations, nausea, vomiting, constipation, diarrhea or urinary symptoms.
Medical History
Past Medical History
Past Medical History: Reports Other
Additional Past Medical History:
hypertension
Parkinson's Disease
Crohn's Disease
depression
Past Surgical History: Reports Other
Additional Past Surgical History:
cervical fusion/laminectomy
small bowel resection for
lumpectomy
Social History
Tobacco: Non-smoker
Alcohol: None
Drug: None
Living: Alone
Employment: Retired
Family History
Family History: Not pertinent
Allergies / Home Medications
Allergies reflects when Allergies were last updated in [facility].
Home Medications with original date entered in [facility]
Allergy/Medication List:
Allergies
Allergy/AdvReac Type Severity Reaction Status Date / Time
gabapentin Allergy Rash Verified 07/05/24 13:20
Penicillins Allergy Unknown Verified 07/05/24 13:20
Home Medications
acetaminophen 500 mg tablet (Tylenol Extra Strength) 1,000 mg PO Q6HPRN PRN mild pain 07/05/24
carbidopa 10 mg-levodopa 100 mg tablet 2 tab PO HS 07/05/24
carbidopa 10 mg-levodopa 100 mg tablet 3 tab PO DAILY 07/05/24
carbidopa 25 mg-levodopa 250 mg tablet 1 tab PO Q3H 07/05/24
carbidopa ER 50 mg-levodopa 200 mg tablet,extended release 1 tab PO HS 07/05/24
carboxymethylcellulose sodium 1 % eye liquid gel drops 2 drp BOTH EYES BIDPRN PRN dry eyes 07/05/24
escitalopram oxalate 10 mg tablet 10 mg PO DAILY 07/05/24
lisinopril 20 mg tablet 20 mg PO DAILY 07/05/24
melatonin 10 mg tablet 10 mg PO HS 07/05/24
therapeutic multivitamin 1 tab PO DAILY 07/05/24
cholecalciferol (vitamin D3) 25 mcg (1,000 unit) tablet (Vitamin D3) 50 mcg (2 x 25 mcg (1,000 unit)) PO DAILY #0 tabs 07/07/24
baclofen 5 mg tablet 5 mg PO BIDPRN PRN muscle spasm 01/04/25
diphenhydramine HCl 50 mg capsule 50 mg PO HSPRN PRN sleep 01/04/25
entacapone 200 mg tablet 200 mg PO TIDPRN PRN if sinemet alone is ineffective 01/04/25
fluticasone propionate 50 mcg/actuation nasal spray,suspension 2 spray intranasal DAILYPRN PRN congestion 01/04/25
omega-3 fatty acids 500 mg capsule 1,500 mg PO DAILY 01/04/25
tramadol 50 mg tablet 50 mg PO Q4H 01/04/25
Review of Systems
-
History Source: Patient
Constitutional: Reports No Symptoms
EENT: Reports No Symptoms
Respiratory: Reports No Symptoms
Cardiac: Reports No Symptoms
Abdomen/GI: Reports No Symptoms
: Reports No Symptoms
Musculoskeletal: Reports Other (bilateral shoulder pain, neck pain and headache)
Skin: Reports No Symptoms
Neurological: Reports No Symptoms
Endocrine: Reports No Symptoms
Hematologic/Lymphatic: Reports No Symptoms
Psych: Reports No Symptoms
Physical Exam
Vital Signs
Vital Signs
Temp Pulse Resp BP Pulse Ox
97.4 F 118 20 140/73 97
01/04/25 16:47 01/04/25 19:30 01/04/25 19:30 01/04/25 19:00 01/04/25 19:30
Physical Exam
General: Well Developed, Well Nourished, Conversant and Pain
HEENT: NormoCephalic, Moist mucous membranes, Atraumatic, [place] Conjunctivae and Nose Appears Normal
Respiratory: Clear and Non Labored Respirations
Cardiac: S1/S2 and Regular Rhythm; No Murmur, Rub or Gallop
Breast: Deferred by me
GI: Soft, Non Tender, Non Distended and Normal Bowel Sounds; No Organomegaly
Rectal: Deferred by Provider
Genito-urinary: Deferred by me
Musculoskeletal: No Clubbing, No Cyanosis and No Edema
Skin: Warm and IV/Catheter Site; No Rash
Neuro: Awake, Alert, AO x 3 and Nonfocal/grossly intact
Psych: Calm and Intact Judgment/Insight
Laboratory Results
-
01/04/25 16:57
01/04/25 16:57
Laboratory Results
Total Bilirubin 0.8 mg/dl (0.2-1.3) 01/04/25 16:57
AST 25 U/L (14-36) 01/04/25 16:57
ALT < 10 U/L (0-35) 01/04/25 16:57
Alkaline Phosphatase 104 U/L (38-126) 01/04/25 16:57
Troponin I < 0.012 ng/ml 01/04/25 16:57
Data Reviewed
-
CT Scan: Report Reviewed by me (Head: No acute intracranial abnormality noted. Possible nasal polyps.; C-spine: Postsurgical changes. There is advanced, progressive degenerative narrowing, sclerosis, and subchondral cystic changes between the
lateral mass of C1 and C2. Otherwise, overall relatively stable.)
Medical Tests (Nuc Med, Echo, EKG etc): Image Personally Visualized and interpreted (EKG: SINUS TACHYCARDIA CANNOT RULE OUT ANTERIOR INFARCT , AGE UNDETERMINED)
Lab Data: Labs Reviewed by me
Impression/Plan
-
IMPRESSION/PLAN:
#headache/dizziness
Head CT: No acute intracranial abnormality noted.
Possible nasal polyps.
C-Spine CT: Postsurgical changes.
There is advanced, progressive degenerative narrowing, sclerosis, and subchondral cystic changes between the lateral mass of C1 and C2.
Otherwise, overall relatively stable.
- Admit to med/surg
- Medrol dose pack
- Tylenol ATC
- start Lyrica
- NSAIDS PRN
- consult PT/OT
- consult case management
#hypertension
- continue lisinopril
#Parkinson's Disease
- continue carbidopa-levodopa
#depression
- continue escitalopram
#Crohn's Disease
s/p bowel resection
Code status: DNR
DVT prophylaxis: loveonox sq
--- NOTE | 2025-01-04 22:09 | W.PN.UPDATE ---
Update Note
Progress Note Update
Patient seen in conjunction with BELLA. I agree with her findings on history and physical. I concur with the assessment and plan.
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
the emergency department with acute episode of shoulder and neck pain. Patient reports waking up with sudden onset of this pain and then a fall. She reports that she likely exacerbated a chronic neck and shoulder pain. She reports the pain is
radiating to left shoulder as well as to her occipital area, preauricular and frontal parts of her head. Pain exacerbated with any movement. Denies any incontinence of the bladder or bowel. Denies any fevers or chills. Denies any upper
respiratory symptoms. Denies any sore throat.
In the emergency department she was afebrile, hemodynamically stable to blood pressure 140/70 pulse of 1 10-1 20, satting 97% on room air. CBC was unremarkable. Electrolytes notable for a sodium of 131 but otherwise BUN/creatinine were
unremarkable. CT of the head shows no acute intracranial process. CT of the cervical spine shows progressive degenerative narrowing, sclerosis, and subchondral cystic changes between the lateral mass of C1 and C2. Otherwise, overall relatively
stable.
Assessment and plan
Suspect exacerbation of chronic spondyloarthropathy of the cervical spine without any focal weakness, numbness and no alarm sign. Pain with occipital component and cephalgia as well. Labs and imaging unremarkable.
- admit to med/surg observation
- medrol dose edgar
- IV toradol now and nsaid prn
- acetaminophen RTC
- dilaudid for severe pain
- lyrica
- PT evaluation, follow up with pain medicine on discharge
- rubens continue her usual home medications
DVT PPX - lovenox sq
Code status - DNR
[2025-01-04] MEDS: TORADOL 15 MG IV (22:16)
[2025-01-04] MEDS: MELATONIN 10 MG PO (22:44)
[2025-01-05 00:41] VITALS: BMI 25.4
[2025-01-05] MEDS: LYRICA 25 MG PO ×2 (01:09→11:11)
[2025-01-05] MEDS: MEDROL 24 MG PO (01:10)
[2025-01-05 01:15] VITALS: BP 128/66
[2025-01-05 06:04] VITALS: BP 130/83
[2025-01-05] MEDS: TYLENOL 1000 MG PO ×3 (06:10→21:19)
--- NOTE | 2025-01-05 08:46 | W.PN.HOSP.TC ---
Today's Communication/Plan
-
See plan
Assessment / Plan
Assessment / Plan
Impression:
Presentation with severe upper neck pain with radiation to the shoulders.
Ambulatory dysfunction
Reported fall days prior to the right
Mild hyponatremia sodium 131
Other conditions:
Parkinson's disease
Hypertension
Depression
Chronic disease with history of bowel resection
Chronic pain requiring opiate use
Plan:
Presents with fairly acute onset of C-spine pain with bilateral shoulder radiation.
Reports no fever.
Suffered a fall to the right side days prior to presentation, although denies hitting head on neck area.
Exam with bilateral shoulder tenderness. Decrease range of abduction of the shoulders bilaterally. Full range of motion at neck.
CT C-spine findings consistent with progressive degenerative narrowing, stenosis and subchondral cystic changes between the lateral mass of C1 and C2. Stable postsurgical changes.
Differential diagnosis: Severe progressive spinal stenosis with acute on chronic spondyloarthropathy, versus systemic process? PMR.
Given persistent and severe pain check MRI of the C-spine.
Inflammatory markers including sed rate and CRP. Rheumatoid factor. Anti-CCP antibody. CPK
Had been initiated on steroid taper. Continue current regimen pending above. Add PPI for GI prophylaxis
Continue Tylenol.
Initiated on Lyrica
Would avoid further NSAIDs
Continue preadmission tramadol and baclofen
PT evaluation
Mild hyponatremia sodium 131. Normotensive and euvolemic on exam. Suspect high ADH state in the settings of pain.
Monitor closely if worsening, consider additional workup with urine electrolytes and osmolarity.
Treat pain
Parkinson's disease.
Continue carbidopa/levodopa. Continue Comtan
Hypertension
Continue lisinopril
Anticipated Discharge: 24 - 48 hours
Subjective/Interval History
-
Date of Service: January 05, 2025
Objective Data
-
Vital Signs:
Vital Signs
Temp Pulse Resp BP Pulse Ox
97.4 F 80 20 130/83 94
01/04/25 16:47 01/05/25 06:04 01/05/25 06:04 01/05/25 06:04 01/05/25 01:16
Physical Exam
-
General: Well Developed and No Apparent Distress
HEENT: Normocephalic, Atraumatic and Moist Mucous Membranes
Respiratory: Clear to Auscultation
Cardiac: Regular Rhythm and S1/S2; Negative Murmur, Rub or Gallop
GI: Soft, Nontender, Nondistended and Normal Bowel Sounds; Negative Organomegaly
Rectal: Deferred by Provider
Musculoskeletal: No Clubbing, No Cyanosis and No Edema
Skin: Negative Rash
Neuro: Awake, Alert, Oriented, AO x 3 and Other (Bilateral shoulder point tenderness. Decreased range of motion/abduction bilaterally at the shoulders)
[2025-01-05] MEDS: ZESTRIL 20 MG PO (09:24)
[2025-01-05] MEDS: MEDROL 20 MG PO (09:25)
[2025-01-05] MEDS: SINEMET 10-100 3 TABLET PO (09:25)
[2025-01-05] MEDS: LEXAPRO 10 MG PO (09:34)
[2025-01-05] MEDS: VITAMIN D3 (cholecalciferol) 50 MCG PO (09:34)
[2025-01-05] MEDS: PROTONIX 20 MG PO (09:34)
[2025-01-05] MEDS: THERAGRAN 1 TABLET PO (09:34)
[2025-01-05 11:19] LABS: Erythrocyte Sed Rate 67 mm/hour (0-20)
[2025-01-05 11:21] LABS: Creatine Phosphokinase 54 U/L (30-135)
[2025-01-05 11:40] LABS: C-Reactive Protein < 5.00 mg/L (0.0-10.00)
[2025-01-05 12:00] VITALS: BP 160/78; O2SAT 97
[2025-01-05] MEDS: SINEMET 25-250 1 TABLET PO ×2 (12:10→15:21)
[2025-01-05 12:45] VITALS: BP 163/94
[2025-01-05 12:51] VITALS: BMI 23.8
[2025-01-05] MEDS: ULTRAM 100 MG PO ×2 (12:59→20:01)
[2025-01-05 15:23] VITALS: BP 131/73
[2025-01-05] MEDS: LOVENOX 40 MG SC (17:38)
[2025-01-05] MEDS: SINEMET 10-100 1 TABLET PO ×2 (17:38→20:01)
[2025-01-05] MEDS: SINEMET 10-100 PO (20:01)
[2025-01-05] MEDS: SINEMET CR 50/200 (EXTENDED RELEASE) 1 TABLET PO (21:08)
[2025-01-05] MEDS: MELATONIN 10 MG PO (21:19)
[2025-01-05] MEDS: LIORESAL 5 MG PO (21:23)
[2025-01-05 23:55] VITALS: BP 128/74
[2025-01-06] MEDS: SINEMET 10-100 3 TABLET PO (01:55)
[2025-01-06] MEDS: ULTRAM 100 MG PO ×3 (02:01→21:52)
[2025-01-06 07:31] VITALS: BP 121/71
[2025-01-06] MEDS: THERAGRAN 1 TABLET PO (08:11)
[2025-01-06] MEDS: PROTONIX 20 MG PO (08:11)
[2025-01-06] MEDS: ZESTRIL 20 MG PO (08:12)
[2025-01-06] MEDS: TYLENOL 1000 MG PO ×3 (08:13→21:50)
[2025-01-06] MEDS: LYRICA 25 MG PO (08:13)
[2025-01-06] MEDS: VITAMIN D3 (cholecalciferol) 50 MCG PO (08:14)
[2025-01-06] MEDS: LEXAPRO 10 MG PO (08:14)
[2025-01-06] MEDS: SINEMET 25-250 1 TABLET PO ×3 (08:39→14:51)
[2025-01-06] MEDS: MEDROL 16 MG PO (08:39)
[2025-01-06 11:17] VITALS: BP 117/76
[2025-01-06 11:29] LABS: Hematocrit 35.9 % (37.0-47.0); Hemoglobin 11.8 g/dL (12.0-16.0); Mean Corp Hgb Conc. 32.9 g/dL (33.0-37.0); Mean Corpuscular Hgb 31.1 pg (27.0-31.0); Mean Corpuscular Volume 94.7 fL (81.0-99.0); Mean Platelet Volume 8.7 fL (7.4-10.4); Platelet Count 545 10^3/uL (130-400); Red Blood Cell Count 3.79 10^6/uL (4.20-5.40); Red Cell Dist. Width 13.4 % (11.5-14.5); White Blood Cell Count 7.7 10^3/uL (4.8-10.8)
[2025-01-06 11:53] LABS: Blood Urea Nitrogen 10 mg/dl (7-17); Calcium 9.5 mg/dl (8.4-10.2); Carbon Dioxide 25 mmol/L (22-30); Chloride 99 mmol/L (98-107); Estimated Creatinine Clearance 72 ml/min; Glucose 134 mg/dl (70-99); Potassium 4.1 mmol/L (3.5-5.1); Sodium 135 mmol/L (135-145); eGFR > 60.00
[2025-01-06] MEDS: TORADOL 30 MG IV ×2 (13:08→19:37)
--- NOTE | 2025-01-06 14:11 | W.PN.HOSP.TC ---
Today's Communication/Plan
-
pain control
dvt ppx
Assessment / Plan
Assessment / Plan
Impression:
Presentation with severe upper neck pain with radiation to the shoulders.
Ambulatory dysfunction
Reported fall days prior to the right
Mild hyponatremia sodium 131
Other conditions:
Parkinson's disease
Hypertension
Depression
Chronic disease with history of bowel resection
Chronic pain requiring opiate use
Plan:
Presents with fairly acute onset of C-spine pain with bilateral shoulder radiation.
Reports no fever.
Suffered a fall to the right side days prior to presentation, although denies hitting head on neck area.
Exam with bilateral shoulder tenderness. Decrease range of abduction of the shoulders bilaterally. Full range of motion at neck.
CT C-spine findings consistent with progressive degenerative narrowing, stenosis and subchondral cystic changes between the lateral mass of C1 and C2. Stable postsurgical changes.
Differential diagnosis: Severe progressive spinal stenosis with acute on chronic spondyloarthropathy, versus systemic process? PMR.
Given persistent and severe pain check MRI of the C-spine.
Inflammatory markers including sed rate and CRP. Rheumatoid factor. Anti-CCP antibody. CPK
Had been initiated on steroid taper. Continue current regimen pending above. Add PPI for GI prophylaxis
Continue Tylenol.
Initiated on Lyrica
Continue preadmission tramadol and baclofen
PT evaluation
Mild hyponatremia sodium 131. Normotensive and euvolemic on exam. Suspect high ADH state in the settings of pain.
Monitor closely if worsening, consider additional workup with urine electrolytes and osmolarity.
Treat pain
Parkinson's disease.
Continue carbidopa/levodopa. Continue Comtan
Hypertension
Continue lisinopril
Update: NA improved; Patient still having significant pain, does not feel comfortable to leave; MRI performed with disc bulge/protrusion cervical spine, with no significant sensorimotor deficits. Continue Medrol pack, pain control. Added IV
Toradol for now. Follow-up autoimmune markers.
Anticipated Discharge: Within 24 hours
Subjective/Interval History
-
Date of Service: January 06, 2025
still with significant pain, does not feel comfortable going
Objective Data
-
Labs:
Laboratory Results
01/06/25
10:51
WBC 7.7
Hgb 11.8 L
Hct 35.9 L
Plt Count 545 H
Sodium 135
Potassium 4.1
Chloride 99
Carbon Dioxide 25
BUN 10
Creatinine 0.5 L
Glucose 134 H
Calcium 9.5
Vital Signs:
Vital Signs
Temp Pulse Resp BP Pulse Ox
98.4 F 109 16 117/76 96
01/06/25 11:17 01/06/25 11:17 01/06/25 11:17 01/06/25 11:17 01/06/25 11:17
I&O
01/05/25 01/06/25 01/07/25
06:59 06:59 06:59
Intake Total 480 / 480
Balance 480 / 480
Review of Systems
-
History Source: Patient
All other systems: Not reviewed unless documented
Data Reviewed
-
CT Scan: Report Reviewed by me
MRI: Discussed with Patient
[2025-01-06 15:00] VITALS: BP 136/91
[2025-01-06 15:42] LABS: Glucose - Point of Care 179 mg/dl (70-99)
[2025-01-06] MEDS: COMTAN 200 MG PO (15:49)
--- NOTE | 2025-01-06 17:14 | CM ---
Alert awake oriented patient who lives alone in a 2 story home with 2 steps to enter and 12 steps to bed/bathroom. She is independent in [facility] of daily living.She does drive .She uses a walker and cane .Kassandra explained copy given Kassandra signed on
chart
Had Alonso Martino in past . [facility] hx
Pharmacy [facility]
PCP Dr Diann Penaloza
PLAN Home with no needs
[2025-01-06] MEDS: LOVENOX 40 MG SC (17:20)
[2025-01-06] MEDS: SINEMET 10-100 1 TABLET PO ×3 (17:21→19:37)
[2025-01-06] MEDS: LIORESAL 5 MG PO (17:29)
[2025-01-06] MEDS: SINEMET CR 50/200 (EXTENDED RELEASE) 1 TABLET PO (21:09)
[2025-01-06] MEDS: MELATONIN 10 MG PO (21:50)
[2025-01-06 23:00] VITALS: BP 146/87
[2025-01-07] MEDS: SINEMET 10-100 3 TABLET PO (01:56)
[2025-01-07] MEDS: TORADOL 30 MG IV ×2 (02:00→09:52)
[2025-01-07] MEDS: ULTRAM 100 MG PO ×2 (05:37→11:42)
[2025-01-07 07:05] LABS: Hematocrit 32.6 % (37.0-47.0); Hemoglobin 10.7 g/dL (12.0-16.0); Mean Corp Hgb Conc. 32.8 g/dL (33.0-37.0); Mean Corpuscular Volume 94.5 fL (81.0-99.0); Mean Platelet Volume 9.2 fL (7.4-10.4); Platelet Count 425 10^3/uL (130-400); Red Blood Cell Count 3.45 10^6/uL (4.20-5.40); Red Cell Dist. Width 13.2 % (11.5-14.5); White Blood Cell Count 6.9 10^3/uL (4.8-10.8)
[2025-01-07 07:08] LABS: CCP Antibody IgG/IgA 3 Units (0-19)
[2025-01-07 07:17] VITALS: BP 136/78
[2025-01-07 07:33] LABS: ALT (SGPT) < 10 U/L (0-35); AST (SGOT) 24 U/L (14-36); Albumin 3.3 g/dl (3.5-5.0); Alkaline Phosphatase 75 U/L (38-126); Blood Urea Nitrogen 14 mg/dl (7-17); Carbon Dioxide 27 mmol/L (22-30); Chloride 102 mmol/L (98-107); Estimated Creatinine Clearance 72 ml/min; Glucose 85 mg/dl (70-99); Potassium 4.1 mmol/L (3.5-5.1); Sodium 137 mmol/L (135-145); Total Bilirubin 0.5 mg/dl (0.2-1.3); Total Protein 5.9 g/dl (6.3-8.2); eGFR > 60.00
[2025-01-07] MEDS: LYRICA 25 MG PO (07:37)
[2025-01-07] MEDS: TYLENOL 1000 MG PO ×3 (07:37→21:39)
[2025-01-07] MEDS: VITAMIN D3 (cholecalciferol) 50 MCG PO (07:38)
[2025-01-07] MEDS: SINEMET 25-250 1 TABLET PO ×3 (07:38→15:17)
[2025-01-07] MEDS: LEXAPRO 10 MG PO (07:38)
[2025-01-07] MEDS: THERAGRAN 1 TABLET PO (07:39)
[2025-01-07] MEDS: MEDROL 12 MG PO (07:46)
[2025-01-07] MEDS: PROTONIX 20 MG PO (07:47)
[2025-01-07] MEDS: ZESTRIL 20 MG PO (07:48)
[2025-01-07] MEDS: LIORESAL 5 MG PO (09:02)
--- NOTE | 2025-01-07 11:14 | W.PN.HOSP.TC ---
Today's Communication/Plan
-
pain control
Assessment / Plan
Assessment / Plan
Impression:
Presentation with severe upper neck pain with radiation to the shoulders.
Ambulatory dysfunction
Reported fall days prior to the right
Mild hyponatremia sodium 131
Other conditions:
Parkinson's disease
Hypertension
Depression
Chronic disease with history of bowel resection
Chronic pain requiring opiate use
Plan:
Presents with fairly acute onset of C-spine pain with bilateral shoulder radiation.
Reports no fever.
Suffered a fall to the right side days prior to presentation, although denies hitting head on neck area.
Exam with bilateral shoulder tenderness. Decrease range of abduction of the shoulders bilaterally. Full range of motion at neck.
CT C-spine findings consistent with progressive degenerative narrowing, stenosis and subchondral cystic changes between the lateral mass of C1 and C2. Stable postsurgical changes.
Differential diagnosis: Severe progressive spinal stenosis with acute on chronic spondyloarthropathy, versus systemic process? PMR.
Given persistent and severe pain check MRI of the C-spine.
Inflammatory markers including sed rate and CRP. Rheumatoid factor. Anti-CCP antibody. CPK
Had been initiated on steroid taper. Continue current regimen pending above. Add PPI for GI prophylaxis
Continue Tylenol.
Initiated on Lyrica
Continue preadmission tramadol and baclofen
PT evaluation
Mild hyponatremia sodium 131. Normotensive and euvolemic on exam. Suspect high ADH state in the settings of pain.
Monitor closely if worsening, consider additional workup with urine electrolytes and osmolarity.
Treat pain
Parkinson's disease.
Continue carbidopa/levodopa. Continue Comtan
Hypertension
Continue lisinopril
Update 01/06 : NA improved; Patient still having significant pain, does not feel comfortable to leave; MRI performed with disc bulge/protrusion cervical spine, with no significant sensorimotor deficits. Continue Medrol pack, pain control. Added IV
Toradol for now. Follow-up autoimmune markers.
Update 01/07: worsening pain today, states feels worse today; has not gotten better. Educated on using toradol. Says medrol improved symptoms initially but now worse.
Anticipated Discharge: Within 24 hours
Subjective/Interval History
-
Date of Service: January 07, 2025
worse neck pain radiating to head
Objective Data
-
Labs:
Laboratory Results
01/07/25
05:39
WBC 6.9
Hgb 10.7 L
Hct 32.6 L
Plt Count 425 H D
Sodium 137
Potassium 4.1
Chloride 102
Carbon Dioxide 27
BUN 14
Creatinine 0.4 L
Glucose 85
Calcium 9.0
Total Bilirubin 0.5
AST 24
ALT < 10
Alkaline Phosphatase 75
Vital Signs:
Vital Signs
Temp Pulse Resp BP Pulse Ox
97.7 F 80 18 136/78 97
01/07/25 07:17 01/07/25 07:48 01/07/25 07:17 01/07/25 07:48 01/07/25 07:17
I&O
01/06/25 01/07/25 01/08/25
06:59 06:59 06:59
Intake Total 480 / 480 1200 / 1200
Balance 480 / 480 1200 / 1200
Review of Systems
-
History Source: Patient
All other systems: Not reviewed unless documented
Data Reviewed
-
CT Scan: Report Reviewed by me
MRI: Discussed with Patient
Labs: Labs Reviewed by me
[2025-01-07] MEDS: ROXICODONE 5 MG PO ×3 (13:47→22:22)
[2025-01-07 15:22] VITALS: BP 132/83
[2025-01-07] MEDS: SINEMET 10-100 1 TABLET PO ×3 (16:31→20:13)
[2025-01-07] MEDS: LOVENOX 40 MG SC (17:14)
[2025-01-07] MEDS: SINEMET CR 50/200 (EXTENDED RELEASE) 1 TABLET PO (21:36)
[2025-01-07] MEDS: MELATONIN 10 MG PO (21:38)
[2025-01-07 23:00] VITALS: BP 137/84
[2025-01-08] MEDS: LIORESAL 5 MG PO ×2 (00:37→09:06)
[2025-01-08] MEDS: SINEMET 10-100 3 TABLET PO (02:11)
[2025-01-08] MEDS: ULTRAM 50 MG PO (05:43)
[2025-01-08 06:00] VITALS: BMI 23.9
[2025-01-08 06:08] LABS: Hemoglobin 11.2 g/dL (12.0-16.0); Mean Corp Hgb Conc. 32.9 g/dL (33.0-37.0); Mean Corpuscular Hgb 31.8 pg (27.0-31.0); Mean Corpuscular Volume 96.6 fL (81.0-99.0); Mean Platelet Volume 9.2 fL (7.4-10.4); Platelet Count 439 10^3/uL (130-400); Red Blood Cell Count 3.52 10^6/uL (4.20-5.40); Red Cell Dist. Width 13.3 % (11.5-14.5); White Blood Cell Count 7.1 10^3/uL (4.8-10.8)
[2025-01-08 06:32] LABS: ALT (SGPT) < 10 U/L (0-35); AST (SGOT) 30 U/L (14-36); Albumin 3.5 g/dl (3.5-5.0); Alkaline Phosphatase 74 U/L (38-126); Blood Urea Nitrogen 14 mg/dl (7-17); Carbon Dioxide 31 mmol/L (22-30); Chloride 101 mmol/L (98-107); Estimated Creatinine Clearance 72 ml/min; Glucose 84 mg/dl (70-99); Potassium 4.2 mmol/L (3.5-5.1); Sodium 137 mmol/L (135-145); Total Bilirubin 0.6 mg/dl (0.2-1.3); Total Protein 6.3 g/dl (6.3-8.2); eGFR > 60.00
[2025-01-08 07:15] VITALS: BP 133/76
[2025-01-08] MEDS: VITAMIN D3 (cholecalciferol) 50 MCG PO (07:34)
[2025-01-08] MEDS: LYRICA 25 MG PO (07:34)
[2025-01-08] MEDS: TYLENOL 1000 MG PO ×3 (07:35→21:33)
[2025-01-08] MEDS: THERAGRAN 1 TABLET PO (07:35)
[2025-01-08] MEDS: PROTONIX 20 MG PO (07:35)
[2025-01-08] MEDS: LEXAPRO 10 MG PO (07:35)
[2025-01-08] MEDS: ZESTRIL 20 MG PO (07:35)
[2025-01-08] MEDS: MEDROL 8 MG PO (07:39)
[2025-01-08] MEDS: SINEMET 25-250 1 TABLET PO ×3 (07:42→15:18)
[2025-01-08] MEDS: TORADOL 30 MG IV (08:31)
[2025-01-08] MEDS: FLUSH (NSS) 2 FLUSH IV (08:33)
[2025-01-08] MEDS: ULTRAM 100 MG PO (11:38)
[2025-01-08 13:44] LABS: Rheumatoid Agglutinin Less Than 10 IU (<10 IU)
[2025-01-08 15:35] VITALS: BP 141/89
--- NOTE | 2025-01-08 15:46 | W.PN.HOSP.TC ---
Today's Communication/Plan
-
PT assessment pain
Possibly placement to [facility] facility for rehab.
Speech evaluation
Empiric nystatin for dysphagia
Assessment / Plan
Assessment / Plan
Impression:
Presentation with severe upper neck pain with radiation to the shoulders.
Ambulatory dysfunction
Reported fall days prior to the right
Mild hyponatremia sodium 131
Other conditions:
Parkinson's disease
Hypertension
Depression
Chronic disease with history of bowel resection
Chronic pain requiring opiate use
Plan:
Presents with fairly acute onset of C-spine pain with bilateral shoulder radiation.
Reports no fever.
Suffered a fall to the right side days prior to presentation, although denies hitting head on neck area.
Exam with bilateral shoulder tenderness. Decrease range of abduction of the shoulders bilaterally. Full range of motion at neck.
CT C-spine findings consistent with progressive degenerative narrowing, stenosis and subchondral cystic changes between the lateral mass of C1 and C2. Stable postsurgical changes.
Differential diagnosis: Severe progressive spinal stenosis with acute on chronic spondyloarthropathy, versus systemic process? PMR.
Given persistent and severe pain check MRI of the C-spine.
Inflammatory markers including sed rate and CRP. Rheumatoid factor pending Anti-CCP within normal limits
Had been initiated on steroid taper. Continue current regimen pending above. Add PPI for GI prophylaxis
Continue Tylenol.
Initiated on Lyrica
Reports no relief of pain with tramadol. Continue oxycodone tapering dose slowly.
She declined PT evaluation today complaining of dizziness. Noted walking using walker within the room.
Request options for rehab placement. Discussed with case management.
MRI findings discussed with neurosurgery. No urgent intervention recommended. Follow-up as outpatient.
Complains of dysphagia.
Speech and swallow evaluation.
Start nystatin empirically for possible Lo esophagitis for patient on steroid therapy
Mild hyponatremia sodium 131. Normotensive and euvolemic on exam. Suspect high ADH state in the settings of pain.
Resolved
Parkinson's disease.
Continue carbidopa/levodopa. Continue Comtan
Hypertension
Continue lisinopril
Anticipated Discharge: 24 - 48 hours
Subjective/Interval History
-
Date of Service: January 08, 2025
Objective Data
-
Labs:
Laboratory Results
01/08/25
05:32
WBC 7.1
Hgb 11.2 L
Hct 34.0 L
Plt Count 439 H
Sodium 137
Potassium 4.2
Chloride 101
Carbon Dioxide 31 H
BUN 14
Creatinine 0.4 L
Glucose 84
Calcium 9.0
Total Bilirubin 0.6
AST 30
ALT < 10
Alkaline Phosphatase 74
Vital Signs:
Vital Signs
Temp Pulse Resp BP Pulse Ox
97.8 F 109 16 141/89 94
01/08/25 15:35 01/08/25 15:35 01/08/25 15:35 01/08/25 15:35 01/08/25 15:35
I&O
01/07/25 01/08/25 01/09/25
06:59 06:59 06:59
Intake Total 1200 / 1200 1170 / 1170
Balance 1200 / 1200 1170 / 1170
Physical Exam
-
General: Well Developed and No Apparent Distress
HEENT: Normocephalic, Atraumatic and Moist Mucous Membranes
Respiratory: Clear to Auscultation
Cardiac: Regular Rhythm and S1/S2; Negative Murmur, Rub or Gallop
GI: Soft, Nontender, Nondistended and Normal Bowel Sounds; Negative Organomegaly
Rectal: Deferred by Provider
Musculoskeletal: No Clubbing, No Cyanosis and No Edema
Skin: Negative Rash
Neuro: Awake, Alert, Oriented, AO x 3 and Other (Bilateral shoulder point tenderness. Decreased range of motion/abduction bilaterally at the shoulders)
--- NOTE | 2025-01-08 15:46 | CM ---
CM met with pt bedside along with Dr Jha
VN vs no needs by therapy; pt declined therapy today
CM observed pt indep ambulating throughout room
Discharge planning discussed-pt notes she feels too weak to go home
PASRR completed and broad net of referrals sent via [facility]
Pt now inpatient status- IMM verbally completed
Copy provided
Pt aware she may not have skillable need or [facility] qualifying stay
Discharge Disposition- pt requesting SNF
[2025-01-08] MEDS: COMTAN 200 MG PO (16:21)
[2025-01-08] MEDS: SINEMET 10-100 1 TABLET PO ×3 (16:21→19:35)
[2025-01-08] MEDS: MYCOSTATIN ORAL SUSPENSION 5 ML PO ×2 (17:29→21:33)
[2025-01-08] MEDS: LOVENOX 40 MG SC (17:29)
[2025-01-08] MEDS: ROXICODONE 5 MG PO ×2 (17:31→21:34)
[2025-01-08] MEDS: SINEMET CR 50/200 (EXTENDED RELEASE) 1 TABLET PO (21:06)
[2025-01-08] MEDS: MELATONIN 10 MG PO (21:33)
[2025-01-08 23:40] VITALS: BP 117/71
[2025-01-09] VITALS (7 sets, daily range): BP systolic 91–142; BP diastolic 62–79
[2025-01-09] MEDS: SINEMET 10-100 3 TABLET PO (02:23)
[2025-01-09] MEDS: ROXICODONE 5 MG PO ×4 (02:26→17:54)
[2025-01-09] MEDS: LIORESAL 5 MG PO ×2 (05:51→20:14)
[2025-01-09 06:28] LABS: Hematocrit 31.6 % (37.0-47.0); Hemoglobin 10.2 g/dL (12.0-16.0); Mean Corp Hgb Conc. 32.3 g/dL (33.0-37.0); Mean Corpuscular Hgb 31.4 pg (27.0-31.0); Mean Corpuscular Volume 97.2 fL (81.0-99.0); Mean Platelet Volume 9.3 fL (7.4-10.4); Platelet Count 374 10^3/uL (130-400); Red Blood Cell Count 3.25 10^6/uL (4.20-5.40); Red Cell Dist. Width 13.3 % (11.5-14.5)
[2025-01-09 07:03] LABS: ALT (SGPT) < 10 U/L (0-35); AST (SGOT) 30 U/L (14-36); Albumin 3.5 g/dl (3.5-5.0); Alkaline Phosphatase 70 U/L (38-126); Blood Urea Nitrogen 14 mg/dl (7-17); Calcium 8.8 mg/dl (8.4-10.2); Carbon Dioxide 32 mmol/L (22-30); Chloride 100 mmol/L (98-107); Estimated Creatinine Clearance 72 ml/min; Glucose 81 mg/dl (70-99); Potassium 4.4 mmol/L (3.5-5.1); Sodium 138 mmol/L (135-145); Total Bilirubin 0.7 mg/dl (0.2-1.3); eGFR > 60.00
[2025-01-09] MEDS: VITAMIN D3 (cholecalciferol) 50 MCG PO (07:58)
[2025-01-09] MEDS: TYLENOL 1000 MG PO ×3 (07:58→21:13)
[2025-01-09] MEDS: SINEMET 25-250 1 TABLET PO ×3 (07:58→14:12)
[2025-01-09] MEDS: THERAGRAN 1 TABLET PO (07:58)
[2025-01-09] MEDS: MEDROL 4 MG PO (07:59)
[2025-01-09] MEDS: ZESTRIL 20 MG PO (07:59)
[2025-01-09] MEDS: PROTONIX 20 MG PO (07:59)
[2025-01-09] MEDS: LYRICA 25 MG PO (07:59)
[2025-01-09] MEDS: LEXAPRO 10 MG PO (08:00)
[2025-01-09] MEDS: MYCOSTATIN ORAL SUSPENSION 5 ML PO ×4 (08:00→21:14)
--- NOTE | 2025-01-09 10:20 | PTOTSP ---
ST Acute Care Evaluation
Pt currently presents with clinical signs of possible pharyngoesophageal dysphagia characterized by delayed cough s/p ingestion of liquids and sensation of esophageal stasis s/p ingestion of solids. Of note, pt is currently receiving nystatin tx for
suspected micaela esophagitis 2/2 steroid tx.
Recommendations:
- Continue with regular solids, thin liquids, meds as tolerated.
- Aspiration and reflux precautions: HOB upright for all PO intake and for 60 minutes after PO intake; small bites/sips; chew food thoroughly; slow intake rate; alternate solids/liquids; avoid bread-like items.
- GERIATRICS PHYSICIAN to f/u briefly to monitor symptoms and use of compensatory strategies.
- If symptoms do not fully resolve, can consider video fluoroscopic swallow study and/or barium swallow study to gather more information. These can also be completed as an OP.
[2025-01-09] MEDS: COMTAN 200 MG PO (12:13)
--- NOTE | 2025-01-09 14:43 | CM ---
Addendum entered by Kaelyn Whitmore 01/09/25 15:25:
[facility]
Original Note:
CM reviewed pt with Dr Jha
Bedside meeting with pt- she is still requesting SNF be arranged
Pt declined at [facility] due to lack of skillable need
Pt offered beds at [facility], [place] and [place]
She is asking for add'l referral to [facility]
Referral in [facility] and call to [facility]
Referral under review
Pt will have qualifying stay tomorrow 01/10
Discharge Disposition- pt requesting SNF
[2025-01-09] MEDS: ANTIVERT 12.5 MG PO ×2 (15:03→21:13)
[2025-01-09] MEDS: SINEMET 10-100 1 TABLET PO ×3 (15:44→19:43)
--- NOTE | 2025-01-09 15:55 | W.PN.HOSP.TC ---
Today's Communication/Plan
-
MRI of the brain
Meclizine
PT assessment
Placement to SNF
Assessment / Plan
Assessment / Plan
Impression:
Presentation with severe upper neck pain with radiation to the shoulders.
Ambulatory dysfunction
Reported fall days prior to the right
Mild hyponatremia sodium 131
Other conditions:
Parkinson's disease
Hypertension
Depression
Chronic disease with history of bowel resection
Chronic pain requiring opiate use
Plan:
Presents with fairly acute onset of C-spine pain with bilateral shoulder radiation.
Reports no fever.
Suffered a fall to the right side days prior to presentation, although denies hitting head on neck area.
Exam with bilateral shoulder tenderness. Decrease range of abduction of the shoulders bilaterally. Full range of motion at neck.
CT C-spine findings consistent with progressive degenerative narrowing, stenosis and subchondral cystic changes between the lateral mass of C1 and C2. Stable postsurgical changes.
Differential diagnosis: Severe progressive spinal stenosis with acute on chronic spondyloarthropathy, versus systemic process? PMR.
Given persistent and severe pain check MRI of the C-spine.
Inflammatory markers including sed rate and CRP. Rheumatoid factor pending Anti-CCP within normal limits
Had been initiated on steroid taper. Continue current regimen pending above. Add PPI for GI prophylaxis
Continue Tylenol.
Initiated on Lyrica
Reports no relief of pain with tramadol. Continue oxycodone tapering dose slowly.
She declined PT evaluation today complaining of dizziness. Noted walking using walker within the room.
Request options for rehab placement. Discussed with case management.
MRI findings discussed with neurosurgery. No urgent intervention recommended. Follow-up as outpatient.
Complains of persistent and positional vertigo
Exam remains nonfocal
Declined physical therapy assessment in multiple occasions at this point.
Will check MRI of the brain to complete workup
Meclizine
Patient encouraged to be assessed with physical therapy pending placement to correction facility.
Complains of dysphagia.
Speech and swallow evaluation.
Start nystatin empirically for possible Lo esophagitis for patient on steroid therapy
Mild hyponatremia sodium 131. Normotensive and euvolemic on exam. Suspect high ADH state in the settings of pain.
Resolved
Parkinson's disease.
Continue carbidopa/levodopa. Continue Comtan
Hypertension
Continue lisinopril
Anticipated Discharge: 24 - 48 hours
Subjective/Interval History
-
Date of Service: January 09, 2025
Objective Data
-
Labs:
Laboratory Results
01/09/25
05:29
WBC 6.0
Hgb 10.2 L
Hct 31.6 L
Plt Count 374
Sodium 138
Potassium 4.4
Chloride 100
Carbon Dioxide 32 H
BUN 14
Creatinine 0.4 L
Glucose 81
Calcium 8.8
Total Bilirubin 0.7
AST 30
ALT < 10
Alkaline Phosphatase 70
Vital Signs:
Vital Signs
Temp Pulse Resp BP Pulse Ox
97.9 F 101 16 120/71 95
01/09/25 07:15 01/09/25 13:16 01/09/25 07:15 01/09/25 13:16 01/09/25 08:35
I&O
01/08/25 01/09/25 01/10/25
06:59 06:59 06:59
Intake Total 1170 / 1170
Balance 1170 / 1170
Physical Exam
-
General: Well Developed and No Apparent Distress
HEENT: Normocephalic, Atraumatic and Moist Mucous Membranes
Respiratory: Clear to Auscultation
Cardiac: Regular Rhythm and S1/S2; Negative Murmur, Rub or Gallop
GI: Soft, Nontender, Nondistended and Normal Bowel Sounds; Negative Organomegaly
Rectal: Deferred by Provider
Musculoskeletal: No Clubbing, No Cyanosis and No Edema
Skin: Negative Rash
Neuro: Awake, Alert, Oriented, AO x 3 and Nonfocal/Grossly Intact
[2025-01-09] MEDS: LOVENOX 40 MG SC (17:29)
[2025-01-09] MEDS: SINEMET CR 50/200 (EXTENDED RELEASE) 1 TABLET PO (21:12)
[2025-01-09] MEDS: MELATONIN 10 MG PO (21:13)
--- NOTE | 2025-01-10 00:09 | PTCARENOTE ---
MRI called unit to ask if patient was available to go for ordered Brain MRI. Patient initially agreed to go but stated 'I'm a little shaky, but I guess I'll just get it over with now.' Patient then immediately called this nurse back to room to
inform this nurse that she would prefer to go tomorrow. Educated patient on the importance of having diagnostic testing done. Patient continued to request that the MRI be performed at a later time. MRI called back and informed. Plan of care ongoing.
[2025-01-10] MEDS: ROXICODONE 5 MG PO ×3 (00:26→11:18)
--- NOTE | 2025-01-10 02:54 | DOWNTIME ---
There was a [employer] Work[employer] Downtime on 01/10/2025 from 0100 to 01/10/2024 at 0235 . Downtime documentation of patient's care, including medication administrations, has been reconciled in the electronic record per guidelines. Refer to the
patient's paper chart under the miscellaneous tab to see printed paper medication records and downtime forms.
[2025-01-10] MEDS: SINEMET 10-100 3 TABLET PO (03:03)
[2025-01-10 05:54] LABS: Hematocrit 35.6 % (37.0-47.0); Hemoglobin 11.7 g/dL (12.0-16.0); Mean Corp Hgb Conc. 32.9 g/dL (33.0-37.0); Mean Corpuscular Hgb 31.3 pg (27.0-31.0); Mean Corpuscular Volume 95.2 fL (81.0-99.0); Mean Platelet Volume 9.2 fL (7.4-10.4); Platelet Count 424 10^3/uL (130-400); Red Blood Cell Count 3.74 10^6/uL (4.20-5.40); Red Cell Dist. Width 13.3 % (11.5-14.5); White Blood Cell Count 5.4 10^3/uL (4.8-10.8)
[2025-01-10 06:15] LABS: ALT (SGPT) < 10 U/L (0-35); AST (SGOT) 30 U/L (14-36); Albumin 3.7 g/dl (3.5-5.0); Alkaline Phosphatase 75 U/L (38-126); Blood Urea Nitrogen 10 mg/dl (7-17); Calcium 9.2 mg/dl (8.4-10.2); Carbon Dioxide 28 mmol/L (22-30); Chloride 105 mmol/L (98-107); Estimated Creatinine Clearance 72 ml/min; Glucose 104 mg/dl (70-99); Potassium 4.3 mmol/L (3.5-5.1); Sodium 137 mmol/L (135-145); Total Bilirubin 0.4 mg/dl (0.2-1.3); Total Protein 6.5 g/dl (6.3-8.2); eGFR > 60.00
[2025-01-10 07:15] VITALS: BP 125/72
[2025-01-10] MEDS: LEXAPRO 10 MG PO (08:47)
[2025-01-10] MEDS: MYCOSTATIN ORAL SUSPENSION 5 ML PO ×2 (08:47→12:16)
[2025-01-10] MEDS: ZESTRIL 20 MG PO (08:47)
[2025-01-10] MEDS: ANTIVERT 12.5 MG PO ×2 (08:47→15:01)
[2025-01-10] MEDS: THERAGRAN 1 TABLET PO (08:48)
[2025-01-10] MEDS: PROTONIX 20 MG PO (08:48)
[2025-01-10] MEDS: TYLENOL 1000 MG PO ×2 (08:48→15:02)
[2025-01-10] MEDS: LIORESAL 5 MG PO (08:48)
[2025-01-10] MEDS: LYRICA 25 MG PO (08:48)
[2025-01-10] MEDS: VITAMIN D3 (cholecalciferol) 50 MCG PO (08:48)
[2025-01-10] MEDS: SINEMET 25-250 1 TABLET PO ×3 (08:52→14:39)
--- NOTE | 2025-01-10 10:50 | CM ---
Addendum entered by Lali Landrum 01/10/25 15:13:
patient states she does not have transportation and CM set up a lyft at ed for patient , nursing made aware. CM will continue to follow for discharge planning needs.
Original Note:
Patient seen at bedside. Patient now asking for discharge home with VN. Reviewed options with patient and she requested referral to [facility] and patient requested assistance with finding supports for aides and cleaning. CM spoke with Shantel who
is looking at the referrals and she will have the referral reviewed and respond. Patient plan is for home today. CM provided IMM and signed form placed on chart. CM will continue to follow for discharge planning needs.
Plan; home with VN await confirmation from [facility].
Please fax clinicals to [phone]
[2025-01-10] MEDS: COMTAN 200 MG PO (11:17)
--- NOTE | 2025-01-10 12:31 | W.DS.TRANS ---
DC Summary - [employer]
-
Discharge Instructions:
Discharge Diagnosis/Procedures Impression:
Presentation with severe upper neck pain with
radiation to the shoulders.
Ambulatory dysfunction
Reported fall days prior to the right
Mild hyponatremia sodium 131
Other conditions:
Parkinson's disease
Hypertension
Depression
Chronic disease with history of bowel resection
Chronic pain requiring opiate use
Diet Regular
Blood Work CRP, Sedimentation rate in 7 days
Instructions:
Stand-Alone Forms:
Changes to Home Medications: Yes
Discharge Medications:
DC Medications w/original date entered in [employer]
acetaminophen 500 mg tablet (Tylenol Extra Strength) 1,000 mg PO Q6HPRN PRN mild pain 07/05/24
carbidopa 10 mg-levodopa 100 mg tablet 1 tab PO 1630,1830,2000 parkinson's disease 07/05/24
carbidopa 10 mg-levodopa 100 mg tablet 3 tab PO DAILYPRN PRN PD symptoms 07/05/24
carbidopa 25 mg-levodopa 250 mg tablet 1 tab PO TID@0830,1200,1500 parkinson's disease 07/05/24
carbidopa ER 50 mg-levodopa 200 mg tablet,extended release 1 tab PO DAILY@2100 parkinson's disease 07/05/24
carboxymethylcellulose sodium 1 % eye liquid gel drops 2 drp BOTH EYES BIDPRN PRN dry eyes 07/05/24
escitalopram oxalate 10 mg tablet 10 mg PO DAILY depression/anxiety 07/05/24
lisinopril 20 mg tablet 20 mg PO DAILY Blood Pressure 07/05/24
melatonin 10 mg tablet 10 mg PO HS sleep 07/05/24
therapeutic multivitamin 1 tab PO DAILY Supplement 07/05/24
cholecalciferol (vitamin D3) 25 mcg (1,000 unit) tablet (Vitamin D3) 50 mcg (2 x 25 mcg (1,000 unit)) PO DAILY #0 tabs 07/07/24
baclofen 5 mg tablet 5 mg PO BIDPRN PRN muscle spasm 01/04/25
diphenhydramine HCl 50 mg capsule 50 mg PO HSPRN PRN sleep 01/04/25
entacapone 200 mg tablet 200 mg PO TIDPRN PRN if sinemet alone is ineffective 01/04/25
fluticasone propionate 50 mcg/actuation nasal spray,suspension 2 spray intranasal DAILYPRN PRN congestion 01/04/25
omega-3 fatty acids 500 mg capsule 1,500 mg PO DAILY Supplement 01/04/25
tramadol 50 mg tablet 50 mg PO Q4HPRN PRN moderate pain 01/04/25
tramadol 50 mg tablet 50 mg PO Q6HPRN PRN severe pain 01/05/25
pantoprazole 20 mg tablet,delayed release 20 mg PO DAILY #30 tabs 01/10/25
prednisone 5 mg tablet 5 mg PO DAILY #10 tabs 01/10/25
pregabalin 25 mg capsule 25 mg PO DAILY #30 caps 01/10/25
Home Medication Changes
Prednisone, Protonix, Lyrica
Pending Results: No
[2025-01-10 15:25] VITALS: BP 120/70
== END 2025-01-10 15:31 | disposition home health service (06) | DRG 552 ==
LOC: 3 WEST ACU 13:11
PROVIDERS: Internal Medicine; ADMITTING PHYSICIAN Internal Medicine; ATTENDING PHYSICIAN Internal Medicine; EMERGENCY PHYSICIAN Emergency Medicine; FAMILY PHYSICIAN Internal Medicine Geriatric Medicine
DX: M48.02 Spinal stenosis, cervical region (principal); E87.1 Hypo-osmolality and hyponatremia; B37.81 Candidal esophagitis; G20.A1 Parkinson's disease without dyskinesia, without mention of fluctuations; I10 Essential (primary) hypertension; F32.A Depression, unspecified; M35.3 Polymyalgia rheumatica; G89.4 Chronic pain syndrome; Z98.1 Arthrodesis status; Z79.891 Long term (current) use of opiate analgesic; Z66 Do not resuscitate; Z88.0 Allergy status to penicillin; Z79.899 Other long term (current) drug therapy
CPT/HCPCS: 70450; 72125; 72156; 80048; 80053; 82550; 82962; 84484; 85025; 85027; 85652; 86140; 86200; 86430; 92610; 93005; 96361; 96374; 99285; A9575